=== PATIENT | male | born 1955 | race Caucasian/White ===

== ENCOUNTER 2016-08-21 18:43 | Observation (INO) | payer OTHER ==
[~2016-08-21] VITALS: Ht 172.7 cm; Wt 93.0 kg
[~2016-08-21 18:43] MED LIST: ADVAIR 250-501 EACH INH; ADVAIR DISKUS 21 DSK INH; AMITRIPTYLINE H50 M2 PO; AMITRIPTYLINE H50 MG PO; ASPIRIN CHILDRE81 MG PO; ASPIRIN EC81 M1 PO; ATORVASTATIN CA20 MG PO; ATORVASTATIN CA40 MG PO; ATORVASTATIN CA80 M1 PO; AUGMENTIN 875-1 EACH PO; COLACE100 M1 PO; ELAVIL25 MG PO; GLUCOPHAGE1000 M1 PO; GLUCOPHAGE850 MG PO; HYDROCHLOROTHIA25 M1 PO; JANUVIA 100MG100 MG PO; JANUVIA100 M1 PO; LEVSIN0.125 M1 PO; LISINOPRIL2.5 M1 PO; LOPRESSOR50 MG PO; METFORMIN1000 MG PO; METOPROLOL TART50 M1 PO; MOTRIN800 MG PO; NAPROSYN500 MG PO; NORVASC5 M1 PO; OXYCODONE HCL15 MG PO; OXYCODONE HCL20 M2 PO; OXYCODONE HYDRO10 M1 PO; OXYCODONE HYDRO15 MG PO; OXYCONTIN10 MG PO; OXYCONTIN15 MG PO; OXYCONTIN20 M1 PO; PERCOCET 5-3251 EACH PO; PREDNISONE10 M2 PO; PRILOSEC 20MG C20 MG PO; PRINIVIL 5MG5 MG PO; PROAIR HFA0.09 MG/Ac INH; PROAIR HFA8.5 GM INH; RAMIPRIL10 MG PO; ROXICODONE15 MG PO; TOPROL XL 25MG25 MG PO; VALIUM5 M1 PO
--- NOTE | 2016-08-21 18:58 | NUR ---
PT TO TRIAGE WITH C/O LEFT SIDED CHEST TIGHTNESS AND ANXIETY STARTED AROUND 3PM. PT DENIES SOB, DENIES ABD PAIN,N/V/D. VSS. HX OF CABG,HTN,DIABETES,HIGH CHOLESTEROL. EKG DONE IN [place].
--- NOTE | 2016-08-21 19:27 | ED CARDIAC/CP/PALPITATIONS ---
History of Present Illness General Chief Complaint: Palpitations Stated Complaint: HEART PALPS Source: patient, family, old records Exam Limitations: no limitations Vital Signs & Intake/Output Vital Signs & Intake/Output Vital Signs Date Time Temp Pulse Resp B/P Pulse O2 O2 Flow FiO2 Ox Delivery Rate 08/23 0926 80 118/88 08/23 0926 80 118/88 08/23 0926 60 118/88 08/23 0827 97.9 80 18 118/88 93 Room Air 08/23 0000 95 Room Air 08/22 2328 97.6 76 20 120/80 93 Room Air ED Intake and Output 08/23 0000 08/22 1200 Intake Total 1440 650 Output Total Balance 1440 650 Intake, Oral 1440 650 Patient 205 lb Weight Allergies Coded Allergies: NO KNOWN ALLERGIES (11/08/13) Reconcile Medications Albuterol Sulfate (Proair Hfa) 8.5 GM HFA.AER.AD 2 PUFF INH DAILY ASTHMA ( Reported) Amitriptyline HCl 50 MG TABLET 1 TAB PO QHS MENTAL HEALTH (Reported) Amlodipine Besylate (Norvasc) 5 MG TABLET 1 TAB PO DAILY BP (Reported) Aspirin (Ecotrin*) 81 MG TABLET.DR 1 TAB PO DAILY HEART/BLOOD (Reported) Atorvastatin Calcium 80 MG TABLET 1 TAB PO DAILY CHOLESTEROL (Reported) Fluticasone/Salmeterol (Advair 250-50 Diskus) 1 EACH BLST.W.DEV 1 PUFF INH DAILY ASTHMA (Reported) Hydrochlorothiazide 25 MG TABLET 1 TAB PO DAILY HTN (Reported) Lisinopril 2.5 MG TABLET 1 TAB PO DAILY BP (Reported) Metformin HCl (Glucophage) 1,000 MG TABLET 1 TAB PO DAILY DIABETES (Reported) Metoprolol Tartrate 50 MG TABLET 1 TAB PO DAILY BLOOD PRESSURE (Reported) Oxycodone HCl (Oxycontin) 20 MG TAB.ER.12H 1 TAB PO BID PAIN (Reported) Oxycodone HCl 20 MG TABLET 1 TAB PO Q4H PAIN (Reported) Sitagliptin Phosphate (Januvia) 100 MG TABLET 1 TAB PO DAILY DIABETES ( Reported) Triage Note: PT TO TRIAGE WITH C/O LEFT SIDED CHEST TIGHTNESS AND ANXIETY STARTED AROUND 3PM. PT DENIES SOB, DENIES ABD PAIN,N/V/D. VSS. HX OF CABG,HTN,DIABETES,HIGH CHOLESTEROL. EKG DONE IN [place]. Triage Nurses Notes Reviewed? yes Onset: Abrupt Duration: SINCE 3 PM Timing: multiple episodes today Quality/Severity: pressure Location: LEFT CHEST Activities at Onset: rest, WATCHING TV Aspirin Today: 81 mg x 2 HPI: This is a 60-year-old male history of hypertension, diabetes, dyslipidemia and previous bypass surgery 2 years ago presents to the treatment of left-sided chest pressure and palpitations that started at 3:00 while watching TV. Symptoms present since 3 PM. Denies any diaphoresis or breath. Past History Travel History Traveled to [place] past 21 day No Medical History Any Pertinent Medical History? see below for history Neurological: NONE EENT: NONE Cardiovascular: hypertension, hyperlipidemia, CABG Respiratory: NONE Gastrointestinal: SPASTIC COLON Hepatic: NONE Renal: nephrolithiasis Musculoskeletal: CHRONIC KNEE PAIN Psychiatric: NONE Endocrine: diabetes Blood Disorders: NONE Cancer(s): NONE SOCK TURNER/Reproductive: NONE History of MRSA: No History of VRE: No History of CDIFF: No Surgical History Surgical History: CABG Psychosocial History Who do you live with Family Services at Home None What is your primary language Japanese Tobacco Use: Current Daily Use Daily Tobacco Use Amount/Type: => 5 Cigarettes daily Family History Family History, If Any: FATHER (pancreatic ca). MOTHER (heart attack when she was younger than 65). Hx Contributory? No Review of Systems Review of Systems Constitutional: Denies: chills, diaphoresis, fever. EENTM: Reports: no symptoms. Respiratory: Denies: cough, short of breath, sputum production. Cardiovascular: Reports: chest pain, palpitations. GI: Denies: abdominal pain. Genitourinary: Denies: discharge, dysuria. Musculoskeletal: Reports: no symptoms. Skin: Reports: no symptoms. Neurological/Psychological: Reports: no symptoms. Hematologic/Endocrine: Denies: bruising, bleeding, polyuria, polydipsia. Immunologic/Allergic: Denies: splenectomy. All Other Systems: Reviewed and Negative Physical Exam Physical Exam General Appearance: well developed/nourished, alert, awake, comfortable Head: atraumatic, normal appearance Eyes: Bilateral: normal appearance, PERRL, EOMI. Ears, Nose, Throat: normal pharynx, hearing grossly normal Neck: normal inspection, supple, full range of motion Respiratory: normal breath sounds, chest non-tender, no respiratory distress Cardiovascular: regular rate/rhythm Peripheral Pulses: 2+ radial (R), 2+ radial (L) Gastrointestinal: normal bowel sounds, soft, non-tender Neurologic/Psych: no motor/sensory deficits, awake, alert, oriented x 3, ANXIOUS Skin: intact, normal color, warm/dry Core Measures ACS in differential dx? Yes ASA ordered for poss ACS? Yes-ordered Severe Sepsis Present: No Septic Shock Present: No Progress Differential Diagnosis: AMI, CHF/pulm edema, musculoskeletal pain, myocarditis, pericarditis, pneumonia, pneumothorax, pulmonary embolism, unstable angina Plan of Care: Orders Procedure Date/time Status Discharge Patient 08/23 UNK Active Laboratory Tests 08/23/16 0634: Anion Gap 11, Estimated GFR > 60, BUN/Creatinine Ratio 17.5 Diagnostic Imaging: Viewed by Me: Radiology Read. Discussed w/RAD: Radiology Read. CXR Impression: PATIENT: ALEKS GARCIA PRESENT AGE: 60 PATIENT ACCOUNT NO: [id number] : 55 LOCATION: [facility] ORDERING PHYSICIAN: SIRI MANZANARES MD SERVICE DATE: 08/21/16 EXAM TYPE: RAD - XRY -PORTABLE CHEST XRAY EXAMINATION: XR PORTABLE CHEST CLINICAL INFORMATION: Left- sided chest pain. COMPARISON: Chest x-ray 06/22/2016. TECHNIQUE: Portable AP view of the chest was obtained. FINDINGS: The lungs are well-expanded and clear without focal airspace consolidation. No pleural effusions or pneumothoraces are identified. Cardiomediastinal contours are within normal limits. There are median sternotomy wires and findings indicative of prior CABG. Soft tissues are unremarkable. No acute osseous abnormality is identified. IMPRESSION: No acute pulmonary process. DICTATED BY: GEE GRIFFITHS MD DATE/TIME DICTATED:08/21/162003 PIPING DESIGNER:AL[place] DATE/TIME TRANSCRIBED:08/21/162003 CONFIDENTIAL, DO NOT COPY WITHOUT APPROPRIATE AUTHORIZATION. <Electronically signed in Other Vendor System> SIGNED BY: GEE GRIFFITHS MD 08/21/162008 Initial ED EKG: NSR Departure Departure Disposition: STILL A PATIENT Condition: Stable Clinical Impression Primary Impression: Chest pain at rest Referrals: MARGARETH BURNHAM MD (PCP/Family) Departure Forms: Customer Survey General Discharge Information Observation Note Spoke With: ÁNGEL DOAN MDStephany Physician Advisor Notified: WALLY CHANG DO Place Patient In: Non-ED OBS Care Area Rationale for Observation: My rational for observation is as follows [ASPIRIN, NITRATES, SERIAL EKG, SERIAL TROPNIN, CARDIOLOGY EVALUATION, ECHOCARDIOGRAM]. Critical Care Note Critical Care Note Critical Care Time: non-applicable ED Attending Observation Initial Observation Note: I
[2016-08-21 20:07] LABS: ABSOLUTE BASOPHIL COUNT 0.1 /CUMM (0.0-0.2); ABSOLUTE EOSINOPHIL COUNT 0.4 /CUMM (0.0-0.7); ABSOLUTE GRANULOCYTE CT 4.6 /CUMM (1.4-6.5); ABSOLUTE LYMPH COUNT 2.3 /CUMM (1.2-3.4); ABSOLUTE MONOCYTE COUNT 0.8 /CUMM (0.10-0.60); BASOPHIL % 0.7 % (0.0-2.0); EOSINOPHIL % 4.6 % (0-5); GRANULOCYTE % 56.5 % (42.2-75.2); HEMATOCRIT 44.9 % (42-52); MEAN CORPUSCULAR HGB CONC 33.4 G/DL (33.0-37.0); MEAN CORPUSCULAR VOLUME 86.9 FL (80.0-94.0); MEAN PLATELET VOLUME 7.7 FL (7.4-10.4); PLATELET COUNT 227 /CUMM (130-400); RBC DISTRIBUTION WIDTH 13.5 % (11.5-14.5); RED BLOOD CELL CT 5.17 /CUMM (4.70-6.10); WHITE BLOOD CELL COUNT 8.1 /CUMM (4.8-10.8)
--- NOTE | 2016-08-21 20:09 | RADIOLOGY REPORT ---
EXAMINATION: XR PORTABLE CHEST CLINICAL INFORMATION: Left-sided chest pain. COMPARISON: Chest x-ray 06/22/2016. TECHNIQUE: Portable AP view of the chest was obtained. FINDINGS: The lungs are well-expanded and clear without focal airspace consolidation. No pleural effusions or pneumothoraces are identified. Cardiomediastinal contours are within normal limits. There are median sternotomy wires and findings indicative of prior CABG. Soft tissues are unremarkable. No acute osseous abnormality is identified. IMPRESSION: No acute pulmonary process.
--- NOTE | 2016-08-21 20:09 | NUR ---
SEEN BY ER IV MED LOCK EST 20 RIGHT AC B/W SENT PORTABLE CHEST X-RAY DONE PATIENT GIVEN 325 [place] 1150 NO CHANGE IN PRESSURE OR SYMPTOMS PATIENT REMIANS IN NSR W/O ECTOPY B/P S/P NTG 110/66
--- NOTE | 2016-08-21 20:18 | NUR ---
PER SUDHEER IN LAB, SST HEMOLYZED, NEEDS REDRAW.MIMA MST NOTIFIED.
--- NOTE | 2016-08-21 20:57 | NUR ---
PATIENT C/O CP REQUESTING PAIN MED GIVEN 4 MG MORPHINE
--- NOTE | 2016-08-21 21:16 | NUR ---
PATIENT STATES PAIN IMPROVED S/P MORPHINE NOW 10/11 MONITOR NSR W/O ECTOPY
--- NOTE | 2016-08-21 22:20 | NUR ---
PATIENT STATES PAIN RETURNING GIVEN OXYCONTIN 20 MG PO PATIENT EVAL BY HOUSE STAFF MONITOR NSR W/O ECTOPY
--- NOTE | 2016-08-21 22:28 | History & Physical ---
CARLEE CLEARY,ILSA 08/21/16 2228: General Information and HPI MD Statement: I have seen and personally examined ALEKS GARCIA and documented this H&P. The patient is a 60 year old M who presented with a patient stated chief complaint of [chest pain]. Source of Information: patient, old records Exam Limitations: no limitations History of Present Illness: This is a 60-year-old male with past medical history significant for hypertension, chronic knee pain, hyperlipidemia, diabetes, COPD, 20+ Pack year smoking, CAD status post 2 vessel bypass in 2014. He presented with chief complaint of left-sided chest pressure and palpitations that started around 3 PM this afternoon while he was watching TV. He denies any exertional component to his chest pain, denies any recent strenuous physical activity, He states he took 2 aspirin without relief of symptoms. He denies any shortness of breath, pleuritic pain, abdominal pain, nausea, vomiting, or dizziness. During interview in ED patient denies any chest pain and states that it was relieved by morphine. Of note, he has been seen in [facility] previously. On 06/25/2016 he was admitted for epiglottitis and in Feb 2016 he was seen for for chest pain. 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 iliac artery and his chest pain was ruled to be musculoskeletal origin. Patient is a current pack per day smoker for the last 20+ years, but he denies any alcohol or IV drug abuse. 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 Allergies/Medications Allergies: Coded Allergies: NO KNOWN ALLERGIES (11/08/13) Home Med list Albuterol Sulfate (Proair Hfa) 8.5 GM HFA.AER.AD 2 PUFF INH DAILY ASTHMA ( Reported) Amitriptyline HCl 50 MG TABLET 1 TAB PO QHS MENTAL HEALTH (Reported) Amlodipine Besylate (Norvasc) 5 MG TABLET 1 TAB PO DAILY BP (Reported) Aspirin (Ecotrin*) 81 MG TABLET.DR 1 TAB PO DAILY HEART/BLOOD (Reported) Atorvastatin Calcium 80 MG TABLET 1 TAB PO DAILY CHOLESTEROL (Reported) Fluticasone/Salmeterol (Advair 250-50 Diskus) 1 EACH BLST.W.DEV 1 PUFF INH DAILY ASTHMA (Reported) Hydrochlorothiazide 25 MG TABLET 1 TAB PO DAILY HTN (Reported) Lisinopril 2.5 MG TABLET 1 TAB PO DAILY BP (Reported) Metformin HCl (Glucophage) 1,000 MG TABLET 1 TAB PO DAILY DIABETES (Reported) Metoprolol Tartrate 50 MG TABLET 1 TAB PO DAILY BLOOD PRESSURE (Reported) Oxycodone HCl (Oxycontin) 20 MG TAB.ER.12H 1 TAB PO BID PAIN (Reported) Oxycodone HCl 20 MG TABLET 1 TAB PO Q4H PAIN (Reported) Sitagliptin Phosphate (Januvia) 100 MG TABLET 1 TAB PO DAILY DIABETES ( Reported) Compliance With Home Meds: UNKNOWN Past History Travel History Traveled to [place] past 21 day No Medical History Neurological: NONE EENT: NONE Cardiovascular: hypertension, hyperlipidemia, CABG Respiratory: NONE Gastrointestinal: SPASTIC COLON Hepatic: NONE Renal: nephrolithiasis Musculoskeletal: CHRONIC KNEE PAIN Psychiatric: NONE Endocrine: diabetes Blood Disorders: NONE Cancer(s): NONE BROADCASTER/Reproductive: NONE History of MRSA: No History of VRE: No History of CDIFF: No Surgical History Surgical History: CABG Past Family/Social History Family History Relations & Conditions if any FATHER (pancreatic ca). MOTHER (heart attack when she was younger than 65). Psychosocial History Who Do You Live With? spouse, child Services at Home: None Primary Language: Nepali Functional Ability ADLs Independent: dressing, eating, toileting, bathing. Ambulation: independent IADLs Independent: shopping, housework, finances, food prep, telephone, transportation , medication admin. Review of Systems Review of Systems Constitutional: Denies: chills, diaphoresis, fever, malaise, weakness. EENTM: Denies: blurred vision, eye pain. Cardiovascular: Reports: chest pain, palpitations. Denies: edema, orthopena, peripheral edema. Respiratory: Denies: cough, hemoptysis, orthopnea, short of breath, wheezing. GI: Reports: no symptoms. Genitourinary: Reports: no symptoms. Musculoskeletal: Reports: joint pain. Skin: Reports: no symptoms. Neurological/Psychological: Denies: anxiety. Exam & Diagnostic Data Last 24 Hrs of Vital Signs/I&O Vital Signs Date Time Temp Pulse Resp B/P Pulse O2 O2 Flow FiO2 Ox Delivery Rate 08/21 2116 97.6 72 18 134/70 96 Room Air 08/218 97 08/21 2004 97.8 70 18 110/62 96 Room Air 08/21 1950 97.8 74 18 120/74 96 Room Air 08/21 1852 97.9 84 18 96/61 99 Room Air Physical Exam General Appearance Alert, Oriented X3, Cooperative, No Acute Distress Skin No Rashes, No Breakdown, No Significant Lesion HEENT Atraumatic, PERRLA, EOMI, Mucous Membr. moist/pink Neck Supple Cardiovascular Regular Rate, Normal S1, Normal S2, No Murmurs, chest pain is reproducible to palpation of left chest wall. Nonpleuritic in nature. Lungs Clear to Auscultation, Normal Air Movement Abdomen Normal Bowel Sounds, Soft, No Tenderness Neurological Normal Gait, Normal Speech Extremities No Clubbing, No Cyanosis, No Edema Assessment/Plan Assessment: This is a 60-year-old male with past medical history significant for hypertension, chronic knee pain, hyperlipidemia, COPD, 37-efks-quow smoking history, diabetes, CAD status post 2 vessel bypass in 2015. He comes in with chief complaint of left-sided chest pressure and palpitations. Patient was given morphine in ED and found complete relief of his chest pain. Additionally, during examination, pain was reproducible to palpation of chest wall. ED workup showed: White count 8.1, hemoglobin 15, hematocrit 44.9, platelet 227. BEP shows sodium 138, potassium 3.9, chloride 98, bicarbonate 29, gap 11, BUN 12, creatinine 0.8. Glucose 124. Negative troponin 1, AST, ALT, alkaline phosphatase within normal limits. CXR IMPRESSION: No acute pulmonary process. Vitals: 97.6, 72, 18, 134/70, 96% on room air. PLAN: 1. Angina at rest: Pt comes in with chief complaint of chest pressure that is 7 out of 10 that did not improve with aspirin. However it did improve with morphine and was reproducible to palpation. Of note, patient had a previous admission with similar complaint, at that time etiology of chest pain was musculoskeletal. However given patient's history of CAD and bypass, patient is admitted as OBS to rule out ACS. First troponin negative. * Troponin and EKG at 3 AM and 9 AM * Echocardiogram in a.m. * Cardiology consult in a.m. * Monitor on telemetry 2. Chronic knee pain: patient has history of chronic knee pain that is treated with opiates. * Continue home regimen 3. COPD: patient has history of COPD and has significant smoking history of 20+ pack years. He is a current pack per day smoker. * Continue Symbicort * Continue albuterol 4. Hypertension/ Hyperlipidemia: Continue home regimen * Continue metoprolol 50 mg by mouth daily * Continue atorvastatin 80 mg by mouth daily * Continue HCTZ 25 mg by mouth daily 5. DM: * Accu-Chek * Sliding scale 6. Smoking: Patient is significant smoking history; see above. * Nicotine patch As Ranked By This Provider Problem List: 1. Chest pain at rest Core Measures/Miscellaneous Acute Coronary Syndrome ACS Diagnosis: No Cerebrovascular Accident CVA/TIA Diagnosis: No Congestive Heart Failure CHF Diagnosis: No Venous Thromboembolism VTE Risk Factors: Acute medical illness, Age > 40 VTE Prophylaxis Ordered Inpt: Pharm- Lovenox No Mech VTE prophylaxis d/t: No contraindications No VTE Pharm Prophylaxis d/t: No contraindications VTE Diagnosis: No VTE Type: NONE VTE Confirmed by (Test): NONE Severe Sepsis Severe Sepsis Present: No Septic Shock Septic Shock Present: No Miscellaneous Documentation Attending Case Discussed With: AGUSTINA DOAN MD Primary Care Physician: MARGARETH BURNHAM MD Patient sees these Specialists UNKNOWN Level of Patient Care: Telemetry Consults Needed: Consulting Specialty: Cardiology TI CORTES MD 08/21/16 7948: Resident Review Statement Resident Statement: examined this patient, discussed with sales management intern Other Findings: This is a 60-year-old gentleman with a past medical history significant for hypertension, hyperlipidemia, coronary artery disease status post bypass couple years ago, diabetes, current every day smoker with a 30+ pack year smoking history presents to the emergency room with a chief complaint of 8 out of 10 sharp substernal chest pain which radiates to the left axilla. Patient states that it was acute in onset and started off this afternoon while he was sitting on the couch, he thought the chest pain with past with time however did not, subsequently he came to the emergency room. Here he was given aspirin and nitroglycerin with alleviation of his symptoms. At present he is chest pain- free, denies any shortness of breath, nausea, vomiting, diarrhea, fevers, chills , recent illness or sick contacts. Physical examination is unremarkable, vital signs are stable, labs are unremarkable, first troponin is less than 0.01 EKG- heart rate 74, NM 188, QRS 110, QTC 49 Sinus rhythm, mild ST depressions in leads V3 which is old, no significant change since previous tracing Chest x-ray shows no acute pulmonary process Assessment- 1. Angina at rest 2. History of CABG 2 years ago 3. History of chronic knee pain 4. Hypertension 5. COPD 6. Hyperlipidemia 7. Diabetes mellitus 8. 30+ pack year smoking history, current nicotine use Plan- Admit to telemetry Vitals per protocol Trend troponin and EKG Cardiology consult in a.m. Echocardiogram Strict I's and O's Continue all other home meds Accu-Cheks and insulin sliding scale Given CP, no nicotine patch DVT prophylaxis with subcutaneous heparin Heart healthy diet Pain pathway Full code FRANKI CLEARY, [facility] 08/21/16 2248: Attending MD Review Statement Attending Statement Attending MD Statement: examined this patient, discuss w/resident/PA/SECURITY INSTALLATION TECHNICIAN, agreed w/resident/PA/SECURITY INSTALLATION TECHNICIAN Attending Assessment/Plan: 60 yo M active smoker with h/o T2DM, COPD, CAD s/p 2 vessel CABG (November 2014), HTN , follows up with Dr. Ugalde, last visit 1 month ago, is here with sudden onset palpitations, dyspnea and left sided chest pain that started around 3 pm while he was watching TV. He felt it was a panic attack. He took 2 baby aspirins at home. He received aspirin 325, nitro SL and IV morphine with chest discomfort now down to 4/10. He denies nausea, diaphoresis, lightheadedness or syncope. VSS. Examination unremarkable. Labs: first troponin neg. EKG: SR, TWI with ST depression lead V2-4 (old), Qtc 409. CXR: neg. Echo (2016): EF > 60%, mild LVH. 1. Chest pain in this patient with known CAD and ongoing nicotine use. 23 Tele Obs, serial EKG and troponin to rule out ACS, Echocardiogram, Cardio consult in AM. Ct. aspirin, statin and metoprolol. Check TSH and free T4. Smoking cessation counseling done. 2. Uncontrolled diabetes. Patient reports his accucheks are around 170-340 at home. Accucheks, hold januvia, initiate novolog SS, check HbA1c. 3. Chronic knee pain. ct. oxycodone and oxycontin. 4. HTN. Ct. Amlodipine, lisinopril and HCTZ. 5. Consider eventual Psych consult (inpatient vs. Outpatient) for evaluation and treatment of anxiety. DVT ppx Lovenox. Full code.
--- NOTE | 2016-08-21 22:59 | NUR ---
PT GOING TO ROOM 185-2.
--- NOTE | 2016-08-21 23:57 | NUR ---
PT SLEEPING. EASILY AROUSED TO VERBAL STIMULAATION. NSR ON THE MONITOR. NO APPARENT DISTRESS
[2016-08-22 00:28] VITALS: BP 120/70
[2016-08-22 07:51] VITALS: BP 122/84
--- NOTE | 2016-08-22 08:46 | PN- Housestaff ---
KIM ROWE 08/22/16 0846: Subjective Follow-up For: Angina at rest Tele-Events Since Last Visit: Sinus rhythm, rate 75-88. Subjective: Patient seen and examined. Reports left-sided chest pain which is worsened by movement. He also has shortness of breath at rest. Denies headache, dizziness, lightheadedness, nausea, vomiting, abdominal pain, or urinary symptoms. Vital signs remained stable. No overnight events reported. Review of Systems Constitutional: Denies: no symptoms. Objective Last 24 Hrs of Vital Signs/I&O Vital Signs Date Time Temp Pulse Resp B/P Pulse O2 O2 Flow FiO2 Ox Delivery Rate 08/22 0914 122/84 08/22 0914 122/84 08/22 0913 122/84 08/22 0904 Room Air 08/22 0800 Room Air 08/22 0751 97.7 76 18 122/84 96 Room Air 08/22 0028 97.4 82 18 120/70 94 Room Air 08/21 2353 96.6 80 20 156/78 95 Room Air 08/21 2116 97.6 72 18 134/70 96 Room Air 08/21 2058 97 08/21 2005 97.8 70 18 110/62 96 Room Air 08/21 1950 97.8 74 18 120/74 96 Room Air 08/21 1852 97.9 84 18 96/61 99 Room Air Intake & Output 08/22 1600 08/22 0800 08/22 0000 Intake Total 650 200 Output Total Balance 650 200 Intake, Oral 650 200 Patient 205 lb 205 lb Weight Physical Exam General Appearance: Alert, Oriented X3, Cooperative, No Acute Distress Skin: No Rashes, No Breakdown, No Significant Lesion HEENT: Atraumatic, PERRLA, EOMI, Mucous Membr. moist/pink Neck: Supple, No JVD, No thryomegaly, +2 Carotid Pulse wo Bruit, No LAD Lymphatic: Axillary nl, Cervical nl Cardiovascular: Regular Rate, Normal S1, Normal S2, No Murmurs, Reproducible pain to palpation of left chest wall Lungs: Clear to Auscultation, Normal Air Movement Abdomen: Normal Bowel Sounds, Soft, No Tenderness, No Hepatospenomegaly, No Masses Neurological: Normal Gait, Normal Speech Extremities: No Clubbing, No Cyanosis, No Edema Vascular: Pulses Symmetrical Current Medications: Current Medications Sig/Ronna Start time Last Medication Dose Route Stop Time Status Admin Acetaminophen 650 MG Q6P PRN 08/21 2300 AC PO Albuterol Sulfate 2 PUF DAILY 08/22 1000 AC 08/22 INH 0918 Amitriptyline HCl 50 MG AT BEDTIME 08/22 2200 AC PO Amlodipine Besylate 5 MG DAILY 08/22 1000 AC 08/22 PO 0913 Aspirin 0 .STK-MED ONE 08/21 2001 DC PO Aspirin 325 MG ONCE ONE 08/21 194 DC 08/21 PO 08/21 1942007 Aspirin Buffered 81 MG DAILY 08/22 1000 AC 08/22 PO 0913 Atorvastatin Calcium 80 MG 1700 08/22 1700 AC PO Budesonide/ 2 PUF BID 08/22 1000 AC 08/22 Formoterol Fumarate INH 0914 Heparin Sodium 5,000 UNIT Q8 08/22 0600 AC 08/22 (Porcine) SC 0601 Hydrochlorothiazide 25 MG DAILY 08/22 1000 AC 08/22 PO 0913 Insulin Aspart 0 TIDAC 08/22 0800 AC 08/22 SC 0826 Lisinopril 2.5 MG DAILY 08/22 1000 AC 08/22 PO 0914 Metoprolol Succinate 50 MG DAILY 08/22 1000 AC 08/22 PO 0914 Morphine Sulfate 4 MG ONCE ONE 08/21 2100 DC 08/21 IV 08/21 2101 2101 Morphine Sulfate 0 .STK-MED ONE 08/21 2054 DC .ROUTE Nitroglycerin 0.4 MG ONCE ONE 08/21 1944 DC 08/21 SL 08/21 Oxycodone HCl 20 MG BID 08/22 1000 AC 08/22 PO 0912 Oxycodone HCl 20 MG Q4P PRN 08/21 2300 AC 08/22 PO 0916 Oxycodone HCl 0 .STK-MED ONE 08/217 DC PO Oxycodone HCl 20 MG ONCE ONE 08/21 2215 DC 08/21 PO 08/21 2216 2219 Last 24 Hrs of Lab/Nuno Results Last 24 Hrs of Labs/Mics: Laboratory Tests 08/22/16 1045: D-Dimer 245 H 08/22/16 0630: Troponin I < 0.01 08/22/16 0302: Troponin I 0.01 08/21/16 2100: Anion Gap 11, Estimated GFR > 60, BUN/Creatinine Ratio 15.0, Glucose 124 H, Calcium 9.5, Total Bilirubin 0.7, AST 17, ALT 38, Alkaline Phosphatase 63, Troponin I < 0.01, Total Protein 6.7, Albumin 4.0, Globulin 2.7, Albumin/ Globulin Ratio 1.5 08/21/16 2000: CBC w Diff NO MAN DIFF REQ, RBC 5.17, MCV 86.9, MCH 29.0, RDW 13.5, MPV 7.7, Gran % 56.5, Lymphocytes % 28.4, Monocytes % 9.8 H, Eosinophils % 4.6, Basophils % 0.7, Absolute Granulocytes 4.6, Absolute Lymphocytes 2.3, Absolute Monocytes 0.8 H, Absolute Eosinophils 0.4, Absolute Basophils 0.1, PUBS MCHC 33.4 Assessment/Plan Assessment: This is a 60-year-old male with past medical history significant for hypertension, chronic knee pain, hyperlipidemia, COPD, [id number] smoking history, diabetes, CAD status post 2 vessel bypass in 2014. He comes in with chief complaint of left-sided chest pressure and palpitations. Patient was given morphine in ED and found complete relief of his chest pain. Problem list * Angina at rest * Chest wall pain * History of CABG 2 years ago * History of chronic knee pain * Hypertension * COPD * Hyperlipidemia * Diabetes Plan * Continue cardiac monitor * Troponins and EKGs remained negative so far * We'll check d-dimer, if elevated patient may need CTA to rule out PE. * If negative patient may need nuclear stress test in the future. * Continue patient's chronic pain medications including Roxycodone and OxyContin. * Follow echocardiogram * Appreciate cardiology recommendations * Continue with Accu-Cheks and insulin sliding scale * DVT prophylaxis with subcutaneous heparin * Cardiac diet * No nicotine patch given chest pain * Patient is full code Problem List: 1. Chest pain Pain Ratin Pain Location: Chest wall, chronic knee pain Pain Goal: Remain pain free Pain Plan: Medications of oxycodone and OxyContin Tomorrow's Labs & Rationales: BEP to monitor electrolytes Consulting Request: Consulting Specialty: Cardiology CECILY CLEARY,QI 08/22/16 0943: Attending MD Review Statement Attending Statement Attending MD Statement: examined this patient, discuss w/resident/PA/GRAPE GROWER, agreed w/resident/PA/GRAPE GROWER, discussed with family, reviewed EMR data (avail), discussed with nursing, amended to note Attending Assessment/Plan: Patient seen and examined. Lying in bed. He continues complain of left-sided chest pain. Pain is laterally located. He reports that it is exacerbated by movement and is reproducible. He also complains of shortness of breath at rest. Denies similar pain in the past. This [place] enzymes have been negative with no ischemic changes on EKG. He has had no events of on telemetry. On examination he does not appear to be in respiratory distress. Lungs are clear to auscultation bilaterally. Heart sounds are regular with no audible normal. Abdomen is soft and nontender. He has no pedal edema. He has no jugular venous distention. Recommendations: -Check d-dimer. If elevated obtain CT angiogram to rule out pulmonary embolism. -If above is negative he will need a nuclear stress test to determine if his pain is cardiac related. -He reports that his pain was not relieved with nitroglycerin. Continue Roxicodone and OxyContin which he takes for chronic pain syndrome.
--- NOTE | 2016-08-22 08:51 | PN- Housestaff ---
Assessment/Plan Consulting Request: Consulting Specialty: Cardiology
--- NOTE | 2016-08-22 13:13 | NUR ---
PATIENT REPORTS DIAPHORESIS, FEELING OF EXTREME ANXIETY, HEADACHE 4/10; VSS ON RA; FINGERSTICK 278; PATIENT IS EVERYDAY SMOKER; NO HISTORY OF ANXIETY; DR. JUAREZ TORO AWARE; WILL MONITOR
--- NOTE | 2016-08-22 15:44 | Cons- Cardiology ---
General Information and HPI Consulting Request Date of Consult: 08/22/16 Requested By: FRANKI CLEARY,AGUSTINA Reason for Consult: Chest pain in a patient with known coronary artery disease Source of Information: patient, old records Exam Limitations: no limitations History of Present Illness: The patient is 60-year-old man with a history of coronary artery disease with bypass surgery in 2014. He also has hypertension and dyslipidemia under appropriate medications. He is an active smoker despite his underlying disease. Patient states he began having left mid axillary chest pain radiating to the left chest yesterday. This was worse with motion and was reproducible with palpation. Because of his past history he was admitted for this. So far the workup has shown 3 negative EKGs and 3 negative cardiac enzymes. The patient has been ambulatory with no exacerbation of his pain. The patient states that he has not had a stress test recently. Allergies/Medications Allergies: Coded Allergies: NO KNOWN ALLERGIES (11/08/13) Home Med List: Albuterol Sulfate (Proair Hfa) 8.5 GM HFA.AER.AD 2 PUFF INH DAILY ASTHMA ( Reported) Amitriptyline HCl 50 MG TABLET 1 TAB PO QHS MENTAL HEALTH (Reported) Amlodipine Besylate (Norvasc) 5 MG TABLET 1 TAB PO DAILY BP (Reported) Aspirin (Ecotrin*) 81 MG TABLET.DR 1 TAB PO DAILY HEART/BLOOD (Reported) Atorvastatin Calcium 80 MG TABLET 1 TAB PO DAILY CHOLESTEROL (Reported) Fluticasone/Salmeterol (Advair 250-50 Diskus) 1 EACH BLST.W.DEV 1 PUFF INH DAILY ASTHMA (Reported) Hydrochlorothiazide 25 MG TABLET 1 TAB PO DAILY HTN (Reported) Lisinopril 2.5 MG TABLET 1 TAB PO DAILY BP (Reported) Metformin HCl (Glucophage) 1,000 MG TABLET 1 TAB PO DAILY DIABETES (Reported) Metoprolol Tartrate 50 MG TABLET 1 TAB PO DAILY BLOOD PRESSURE (Reported) Oxycodone HCl (Oxycontin) 20 MG TAB.ER.12H 1 TAB PO BID PAIN (Reported) Oxycodone HCl 20 MG TABLET 1 TAB PO Q4H PAIN (Reported) Sitagliptin Phosphate (Januvia) 100 MG TABLET 1 TAB PO DAILY DIABETES ( Reported) Current Medications: Current Medications Sig/Ronna Start time Last Medication Dose Route Stop Time Status Admin Acetaminophen 650 MG Q6P PRN 08/21 2300 AC PO Albuterol Sulfate 2 PUF DAILY 08/22 1000 AC 08/22 INH 0918 Amitriptyline HCl 50 MG AT BEDTIME 08/22 2200 AC PO Amlodipine Besylate 5 MG DAILY 08/22 1000 AC 08/22 PO 0913 Aspirin 0 .STK-MED ONE 08/21 2001 DC PO Aspirin 325 MG ONCE ONE 08/21 1945 DC 08/21 PO 08/21 1942007 Aspirin Buffered 81 MG DAILY 08/22 1000 AC 08/22 PO 0913 Atorvastatin Calcium 80 MG 1700 08/22 1700 AC PO Budesonide/ 2 PUF BID 08/22 1000 AC 08/22 Formoterol Fumarate INH 0914 Heparin Sodium 5,000 UNIT Q8 08/22 0600 AC 08/22 (Porcine) SC 1336 Hydrochlorothiazide 25 MG DAILY 08/22 1000 AC 08/22 PO 0913 Insulin Aspart 0 TIDAC 08/22 0800 AC 08/22 SC 1155 Lisinopril 2.5 MG DAILY 08/22 1000 AC 08/22 PO 0914 Metoprolol Succinate 50 MG DAILY 08/22 1000 AC 08/22 PO 0914 Morphine Sulfate 4 MG ONCE ONE 08/21 2100 DC 08/21 IV 08/21 2101 2101 Morphine Sulfate 0 .STK-MED ONE 08/21 2054 DC .ROUTE Nicotine 21 MG DAILY 08/22 1341 AC 08/22 TOP 1428 Nitroglycerin 0.4 MG ONCE ONE 08/21 1945 DC 08/21 SL 08/21 Oxycodone HCl 20 MG BID 08/22 1000 AC 08/22 PO 0912 Oxycodone HCl 20 MG Q4P PRN 08/21 2300 AC 08/22 PO 1332 Oxycodone HCl 0 .STK-MED ONE 08/21 2217 DC PO Oxycodone HCl 20 MG ONCE ONE 08/21 2215 DC 08/21 PO 08/21 2216 2219 Review of Systems Review of Systems: He has chronic musculoskeletal pain and is on chronic opioids. Past History Travel History Traveled to [place] past 21 day No Medical History Blood Transfusion Hx: No Neurological: NONE EENT: NONE Cardiovascular: hypertension, hyperlipidemia, CABG Respiratory: NONE Gastrointestinal: SPASTIC COLON Hepatic: NONE Renal: nephrolithiasis Musculoskeletal: CHRONIC KNEE PAIN Psychiatric: NONE Endocrine: diabetes Blood Disorders: NONE Cancer(s): NONE HEALTHCARE CUSTOMER SERVICE/Reproductive: NONE Surgical History Surgical History: CABG Family History Relations & Conditions If Any: FATHER (pancreatic ca). MOTHER (heart attack when she was younger than 65). Psychosocial History Who Do You Live With? spouse, child Services at Home: None Primary Language: Zimbabwean Smoking Status: Current Everyday Smoker Functional Ability ADLs Independent: dressing, eating, toileting, bathing. Ambulation: independent IADLs Independent: shopping, housework, finances, food prep, telephone, transportation , medication admin. Exam & Diagnostic Data Vital Signs and I&O Vital Signs Date Time Temp Pulse Resp B/P Pulse O2 O2 Flow FiO2 Ox Delivery Rate 08/22 0914 122/84 08/22 0914 122/84 08/22 0913 122/84 08/22 0904 Room Air 08/22 0800 Room Air 08/22 0751 97.7 76 18 122/84 96 Room Air 08/22 0028 97.4 82 18 120/70 94 Room Air 08/21 2353 96.6 80 20 156/78 95 Room Air 08/21 2116 97.6 72 18 134/70 96 Room Air 08/21 2058 97 08/21 2005 97.8 70 18 110/62 96 Room Air 08/21 1950 97.8 74 18 120/74 96 Room Air 08/21 1852 97.9 84 18 96/61 99 Room Air Intake & Output 08/22 1600 08/22 0800 08/22 0000 08/21 1600 08/21 0800 08/21 0000 Intake Total 720 650 200 Output Total Balance 720 650 200 Intake, Oral 720 650 200 Patient 205 lb 205 lb Weight Physical Exam: He is a middle-aged man in no acute distress. HEENT exam is normal Chest is clear Heart reveals regular rhythm and no murmurs Abdomen is benign Extremities no edema Labs/Nuno Results: Laboratory Tests 08/22 08/22 08/22 08/21 1045 0630 0302 2100 Chemistry Sodium (137 - 145 mmol/L) 138 Potassium (3.5 - 5.1 mmol/L) 3.9 Chloride (98 - 107 mmol/L) 98 Carbon Dioxide (22 - 30 mmol/L) 29 Anion Gap (5 - 16) 11 BUN (9 - 20 mg/dL) 12 Creatinine (0.7 - 1.2 mg/dL) 0.8 Estimated GFR (>60 ml/min) > 60 BUN/Creatinine Ratio (7 - 25 %) 15.0 Glucose (65 - 99 mg/dL) 124 H Calcium (8.4 - 10.2 mg/dL) 9.5 Total Bilirubin (0.2 - 1.3 mg/dL) 0.7 AST (17 - 59 U/L) 17 ALT (21 - 72 U/L) 38 Alkaline Phosphatase (< 127 U/L) 63 Troponin I (<0.11 ng/ml) < 0.01 0.01 < 0.01 Total Protein (6.3 - 8.2 g/dL) 6.7 Albumin (3.5 - 5.0 g/dL) 4.0 Globulin (1.9 - 4.2 gm/dL) 2.7 Albumin/Globulin Ratio (1.1 - 2.2 %) 1.5 Coagulation D-Dimer (70 - 232 ng/ml) 245 H 08/21 1999 Hematology CBC w Diff NO MAN DIFF REQ WBC (4.8 - 10.8 /CUMM) 8.1 RBC (4.70 - 6.10 /CUMM) 5.17 Hgb (14.0 - 18.0 G/DL) 15.0 Hct (42 - 52 %) 44.9 MCV (80.0 - 94.0 FL) 86.9 MCH (27.0 - 31.0 PG) 29.0 RDW (11.5 - 14.5 %) 13.5 Plt Count (130 - 400 /CUMM) 227 MPV (7.4 - 10.4 FL) 7.7 Gran % (42.2 - 75.2 %) 56.5 Lymphocytes % (20.5 - 51.1 %) 28.4 Monocytes % (1.7 - 9.3 %) 9.8 H Eosinophils % (0 - 5 %) 4.6 Basophils % (0.0 - 2.0 %) 0.7 Absolute Granulocytes (1.4 - 6.5 /CUMM) 4.6 Absolute Lymphocytes (1.2 - 3.4 /CUMM) 2.3 Absolute Monocytes (0.10 - 0.60 /CUMM) 0.8 H Absolute Eosinophils (0.0 - 0.7 /CUMM) 0.4 Absolute Basophils (0.0 - 0.2 /CUMM) 0.1 PUBS MCHC (33.0 - 37.0 G/DL) 33.4 Diagnostic Data EKG Results 3 EKGs have been done. All show sinus rhythm with no acute changes. There are some minor nonspecific anterior T-wave abnormalities which are not new. CXR Results PATIENT: ALEKS GARCIA PRESENT AGE: 60 PATIENT ACCOUNT NO: [id number] : 55 LOCATION: [facility] ORDERING PHYSICIAN: SIRI MANZANARES MD SERVICE DATE: 08/21/16 EXAM TYPE: RAD - XRY-PORTABLE CHEST XRAY EXAMINATION: XR PORTABLE CHEST CLINICAL INFORMATION: Left-sided chest pain. COMPARISON: Chest x-ray 06/22/2016. TECHNIQUE: Portable AP view of the chest was obtained. FINDINGS: The lungs are well-expanded and clear without focal airspace consolidation. No pleural effusions or pneumothoraces are identified. Cardiomediastinal contours are within normal limits. There are median sternotomy wires and findings indicative of prior CABG. Soft tissues are unremarkable. No acute osseous abnormality is identified. IMPRESSION: No acute pulmonary process. DICTATED BY: GEE GRIFFITHS MD DATE/TIME DICTATED:08/21/162003 REGISTRAR NURSES' REGISTRY:[place] Assessment/Plan Assessment/Plan The patient is a 60-year-old man with known coronary artery disease who presents with very atypical chest pain which is really midaxillary. This is worse on motion and worse on palpation. He has no exertional component and no midsternal component. He has been ambulatory around the rojas. His EKGs and enzymes are negative. I think the patient can be discharged home. He can follow-up with Dr. Ugalde who will decide about outpatient stress testing, but I don't think this needs to be done in hospital. He should continue all his regular medications and make a regular effort to stop smoking. Copies To: ELODIA CLEARY,ERNESTO Diamond Consult Acknowledgment - Thank you for your consult request.
[2016-08-22 15:47] VITALS: BP 119/66
--- NOTE | 2016-08-22 17:37 | NUR ---
PT REPORTING MID-AXILLARY TO LEFT LATERAL CHEST DISCOMFORT. 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 ORDERED 0.5 MG PO ATIVAN. PREVIOUS CARDIAC ENZYMES NEGATIVE. PER PT, CHEST DISCOMFORT IS NOT NEW.
[2016-08-22 23:28] VITALS: BP 120/80
--- NOTE | 2016-08-23 07:40 | PN- Housestaff ---
See Addendum Subjective Follow-up For: Chest pain Tele-Events Since Last Visit: NSR, HR 73-84, PVCs with no overnight events. Subjective: Patient seen and examined at bedside this AM. He reports he feels well other than his chronic bilateral knee pain which is tolerable. Patient denies chest pain, palpitations or generally feeling unwell. He is amenable to discharge today. Review of Systems Constitutional: Denies: chills, fever, malaise. EENTM: Denies: blurred vision, hearing changes, nasal congestion. Cardiovascular: Denies: chest pain, palpitations, peripheral edema, syncope. Respiratory: Denies: cough, short of breath. Gastrointestinal: Denies: abdominal pain, nausea, vomiting. Genitourinary: Denies: dysuria, hematuria. Musculoskeletal: Reports: joint pain (Bilateral knee pain, chronic). Denies: back pain. Skin: Denies: rash. Neurological/Psychological: Denies: anxiety, confusion, headache. Hematologic/Endocrine: Denies: bruising, bleeding. Immunologic/Allergic: Denies: splenectomy. Objective Last 24 Hrs of Vital Signs/I&O Vital Signs Date Time Temp Pulse Resp B/P Pulse O2 O2 Flow FiO2 Ox Delivery Rate 08/23 0000 95 Room Air 08/22 2328 97.6 76 20 120/80 93 Room Air 08/22 1547 97.2 83 18 119/66 94 Room Air 08/22 0914 122/84 08/22 0914 122/84 08/22 0913 122/84 08/22 0904 Room Air Intake & Output 08/23 1600 08/23 0800 08/23 0000 Intake Total 200 720 Output Total 500 Balance -300 720 Intake, Oral 200 720 Output, Urine 500 Physical Exam General Appearance: Alert, Oriented X3, Cooperative, No Acute Distress Skin: No Rashes, No Significant Lesion HEENT: Atraumatic, PERRLA, EOMI, Mucous Membr. moist/pink Neck: Supple, +2 Carotid Pulse wo Bruit Lymphatic: Cervical nl Cardiovascular: Regular Rate, Normal S1, Normal S2, No Murmurs, No chest pain on palpation of anterior chest wall. Lungs: Clear to Auscultation, Normal Air Movement Abdomen: Normal Bowel Sounds, Soft, No Tenderness, No Masses Neurological: Normal Speech, Strength at 5/5 X4 Ext, Normal Tone Extremities: No Clubbing, No Cyanosis, No Edema Vascular: Pulses Symmetrical Current Medications: Current Medications Sig/Ronna Start time Last Medication Dose Route Stop Time Status Admin Acetaminophen 650 MG Q6P PRN 08/21 2300 AC PO Albuterol Sulfate 2 PUF DAILY 08/22 1000 AC 08/22 INH 0918 Amitriptyline HCl 50 MG AT BEDTIME 08/22 2200 AC 08/22 PO 2107 Amlodipine Besylate 5 MG DAILY 08/22 1000 AC 08/22 PO 0913 Aspirin Buffered 81 MG DAILY 08/22 1000 AC 08/22 PO 0913 Atorvastatin Calcium 80 MG 1700 08/22 1700 AC 08/22 PO 1703 Budesonide/ 2 PUF BID 08/22 1000 AC 08/22 Formoterol Fumarate INH 2108 Diclofenac Sodium 1 MAGALY 4 TIMES/DAY 08/23 0033 AC 08/23 TOP 0107 Heparin Sodium 5,000 UNIT Q8 08/22 0600 AC 08/23 (Porcine) SC 0629 Hydrochlorothiazide 25 MG DAILY 08/22 1000 AC 08/22 PO 0913 Insulin Aspart 0 TIDAC 08/22 0800 AC 08/22 SC 1704 Lisinopril 2.5 MG DAILY 08/22 1000 AC 08/22 PO 0914 Lorazepam 0.5 MG ONE ONE 08/22 1745 DC 08/22 PO 08/22 1746 1745 Melatonin 5 MG AT BEDTIME 08/22 2200 AC 08/22 PO 2220 Metoprolol Succinate 50 MG DAILY 08/22 1000 AC 08/22 PO 0914 Nicotine 21 MG DAILY 08/22 1341 AC 08/22 TOP 1428 Oxycodone HCl 20 MG BID 08/22 1000 AC 08/22 PO 2107 Oxycodone HCl 20 MG Q4P PRN 08/21 2300 AC 08/23 PO 0630 Sodium Chloride 2 SPRAY Q4P PRN 08/22 1700 AC 08/22 JORDIN 2108 Last 24 Hrs of Lab/Nuno Results Last 24 Hrs of Labs/Mics: Laboratory Tests 08/23/16 0634: Anion Gap 11, Estimated GFR > 60, BUN/Creatinine Ratio 17.5 08/22/16 1045: D-Dimer 245 H Orders Radiology Findings: CXR: IMPRESSION: No acute pulmonary process. Assessment/Plan Assessment: Mr. Pate is a 60-year-old male with past medical history significant for hypertension, chronic knee pain, hyperlipidemia, COPD, 20-pack- year smoking history, diabetes and CAD status post 2 vessel bypass in 2014. He presented to the [place] ED on with chief complaint of left-sided chest pressure and palpitations. In the ED: Vital signs showed T 97.9, HR 84, RR 18 and BP 120/74. Labs showed WBC 8.1, Hgb 15, Hct 44.9, Plt 227. BEP showed Na 138, K 3.9, Cl 98, bicarbonate 29, AG 11, BUN 12, creatinine 0.8. Glucose 124. Negative troponin CXR was done and showed no acute pulmonary process. Patient was given morphine in ED and found complete relief of his chest pain. He was admitted to the telemetry floor for observation and the following is the current problem list and management: Problem list * Angina at rest * Chest wall pain * History of CABG 2 years ago * History of chronic knee pain * Hypertension * COPD * Hyperlipidemia * Diabetes Plan * Continue playground monitor, stable for discharge today. * Troponins and EKGs negative x 3, ACS ruled out * D-Dimer only slightly elevated to 245, no urgent need for CTA to rule out PE as patient saturating well on room air, no evidence of dyspnea, no tachycardia. * Echocardiogram and possible stress test to be done as an outpatient. * Appreciate cardiology recommendations, suggest patient can be DC home today. * Follow up with Dr. Ugalde after discharge. * Continue patient's chronic pain medications including Roxycodone and OxyContin. * Continue with Accu-Cheks and insulin sliding scale, will resume home anti- diabetic regimen on DC. * DVT prophylaxis with subcutaneous heparin * Heart healthy diet * No nicotine patch given 2/2 chest pain, highly encouraged patient to discontinue tobacco usage. * Patient is full code. Problem List: 1. DVT prophylaxis 2. Full code status 3. Chronic knee pain 4. Chest pain 5. Hypertension Pain Ratin Pain Location: Bilateral knees, chronic Pain Goal: Pain 4 or less Pain Plan: Tylenol for mild pain, oxycodone for moderate pain (home medication). Tomorrow's Labs & Rationales: None, discharge today. Consulting Request: Consulting Specialty: Cardiology
--- NOTE | 2016-08-23 07:46 | Patient Discharge Instructions ---
Discharge Instructions General Discharge Information You were seen/treated for: Chest pain Special Instructions: Please follow up with your PCP within 7 days of discharge for continued care. Discuss about possible referral to psychiatrist for management of anxiety. Please follow up with your substance abuse nurse within 7 days of discharge for continued care. Discuss need for echocardiogram and possible stress test as an outpatient. Please take all medications as directed. Please consider quitting smoking. Please return if your symptoms return or worsen. Diet Recommended Diet: Heart Healthy Activity Activity Self Limited: Yes Acute Coronary Syndrome Inclusion Criteria At DC or during hospital stay patient has or had the following: ACS DIAGNOSIS No Discharge Core Measures Meds if any: Prescribed or Continued at Discharge Meds if any: NOT Prescribed or Continued at Discharge Congestive Heart Failure Inclusion Criteria At DC or during hospital stay patient has or had the following: CHF DIAGNOSIS No Discharge Core Measures Meds if any: Prescribed or Continued at Discharge Meds if any: NOT Prescribed or Continued at Discharge Cerebrovascular accident Inclusion Criteria At DC or during hospital stay patient has or had the following: CVA/TIA Diagnosis No Discharge Core Measures Meds if any: Prescribed or Continued at Discharge Meds if any: NOT Prescribed or Continued at Discharge Venous thromboembolism Inclusion Criteria VTE Diagnosis No VTE Type NONE VTE Confirmed by (Test) NONE Discharge Core Measures - Per Current guidelines, there needs to be overlap - treatment for the first 5 days of Warfarin therapy. - If discharged on Warfarin prior to 5 days of - overlap therapy, the patient will need to be - assessed for post discharge needs including - *Post discharge parental anticoagulation - *Warfarin and/or parental anticoagulation education - *Follow up date to check INR post discharge At least 5 days overlap therapy as Inpatient No Meds if any: Prescribed or Continued at Discharge Note: Overlap Therapy is Warfarin and Anticoagulant Meds if any: NOT Prescribed or Continued at Discharge
[2016-08-23 08:27] VITALS: BP 118/88; BP 122/80
[2016-08-23 09:26] VITALS: BP 118/88
--- NOTE | 2016-08-23 10:45 | PN- Cardiology ---
Subjective Subjective: The patient reports that he is feeling well. Chest discomfort has resolved. No shortness of breath. No palpitations. No diaphoresis. No lightheadedness or dizziness. No nausea or vomiting. Objective Vital Signs and I&Os Vital Signs Date Time Temp Pulse Resp B/P Pulse O2 O2 Flow FiO2 Ox Delivery Rate 08/23 09 80 118/88 08/23 0926 80 118/88 08/23 0926 60 118/88 08/23 0827 97.9 80 18 118/88 93 Room Air 08/23 0000 95 Room Air 08/22 2328 97.6 76 20 120/80 93 Room Air 08/22 1547 97.2 83 18 119/66 94 Room Air Intake & Output 08/23 1600 08/23 0800 08/23 0000 08/22 1600 08/22 0808/22 0000 Intake Total 200 720 720 650 200 Output Total 500 Balance -300 720 720 650 200 Intake, Oral 200 720 720 650 200 Output, Urine 500 Patient 205 lb 205 lb Weight Physical Exam: Gen: NAD HEENT: normal Lungs: clear to auscultation, normal resp. effort Heart: RRR, S1, S2, no murmurs Abdomen: Soft, nontender, no masses Extremities: No clubbing, cyanosis, or edema. Neuro: Alert and oriented x 3, cranial nerves intact Current Medications: Current Medications Sig/Ronna Start time Last Medication Dose Route Stop Time Status Admin Acetaminophen 650 MG Q6P PRN 08/21 2300 AC PO Albuterol Sulfate 2 PUF DAILY 08/22 1000 AC 08/23 INH 0928 Amitriptyline HCl 50 MG AT BEDTIME 08/22 2200 AC 08/22 PO 2107 Amlodipine Besylate 5 MG DAILY 08/22 1000 AC 08/23 PO 0926 Aspirin Buffered 81 MG DAILY 08/22 1000 AC 08/23 PO 0925 Atorvastatin Calcium 80 MG 1700 08/22 1700 AC 08/22 PO 1703 Budesonide/ 2 PUF BID 08/22 1000 AC 08/23 Formoterol Fumarate INH 0925 Diclofenac Sodium 1 MAGALY 4 TIMES/DAY 08/23 0033 AC 08/23 TOP 0107 Heparin Sodium 5,000 UNIT Q8 08/22 0600 AC 08/23 (Porcine) SC 0629 Hydrochlorothiazide 25 MG DAILY 08/22 1000 AC 08/23 PO 0925 Insulin Aspart 0 TIDAC 08/22 0800 AC 08/22 SC 1704 Lisinopril 2.5 MG DAILY 08/22 1000 AC 08/23 PO 0926 Lorazepam 0.5 MG ONE ONE 08/22 1745 DC 08/22 PO 08/22 1746 1745 Melatonin 5 MG AT BEDTIME 08/22 2200 AC 08/22 PO 2220 Metoprolol Succinate 50 MG DAILY 08/22 1000 AC 08/23 PO 0926 Nicotine 21 MG DAILY 08/22 1341 AC 08/23 TOP 0925 Oxycodone HCl 20 MG BID 08/22 1000 AC 08/23 PO 0926 Oxycodone HCl 20 MG Q4P PRN 08/21 2300 AC 08/23 PO 0630 Sodium Chloride 2 SPRAY Q4P PRN 08/22 1700 AC 08/22 JORDIN 2108 Results Last 48 Hrs of Labs/Mics: Laboratory Tests 08/23/16 0634: Anion Gap 11, Estimated GFR > 60, BUN/Creatinine Ratio 17.5 08/22/16 1045: D-Dimer 245 H 08/22/16 0630: Troponin I < 0.01 08/22/16 0302: Troponin I 0.01 08/21/16 2100: Anion Gap 11, Estimated GFR > 60, BUN/Creatinine Ratio 15.0, Glucose 124 H, Calcium 9.5, Total Bilirubin 0.7, AST 17, ALT 38, Alkaline Phosphatase 63, Troponin I < 0.01, Total Protein 6.7, Albumin 4.0, Globulin 2.7, Albumin/ Globulin Ratio 1.5 08/21/16 2000: CBC w Diff NO MAN DIFF REQ, RBC 5.17, MCV 86.9, MCH 29.0, RDW 13.5, MPV 7.7, Gran % 56.5, Lymphocytes % 28.4, Monocytes % 9.8 H, Eosinophils % 4.6, Basophils % 0.7, Absolute Granulocytes 4.6, Absolute Lymphocytes 2.3, Absolute Monocytes 0.8 H, Absolute Eosinophils 0.4, Absolute Basophils 0.1, PUBS MCHC 33.4 Recent Imaging Studies: Chest x-ray: No acute pulmonary process. Assessment/Plan Assessment/Plan 1. CAD, status post CABG 2. Hypertension, controlled 3. Diabetes mellitus 4. Chest discomfort, mostly atypical. Ruled out for myocardial infarction. Recommendations: * Discharge to home. * Regadenoson nuclear stress test as outpatient. * Call or return to emergency department with further chest pain. * Continue usual outpatient medications. * Follow up in the office in one week. Continue telemetry? Yes
== END 2016-08-23 11:00 ==
LOC: ENRESERVDT → ENRESERVTM → ERH 18:43 → ENPENDDIS 22:31 → ERHI 22:31 → 1NO 22:31
PROVIDERS: Emergency Medicine; ADMIT Student in an Organized Health Care Education/Training Program
DX: R07.89 Other chest pain (principal); I25.810 Atherosclerosis of coronary artery bypass graft(s) without angina pectoris; I10 Essential (primary) hypertension; J44.9 Chronic obstructive pulmonary disease, unspecified; E78.5 Hyperlipidemia, unspecified; E11.9 Type 2 diabetes mellitus without complications; F17.200 Nicotine dependence, unspecified, uncomplicated; M25.562 Pain in left knee; M25.561 Pain in right knee
CPT/HCPCS: 2000; 36415; 82436; 93005; 93010; 96372; 96374; G0378; J1644; J3490

== ENCOUNTER 2016-09-26 09:07 | Emergency (ER) | payer OTHER ==
[~2016-09-26] VITALS: Ht 172.7 cm; Wt 90.7 kg
[2016-09-26 09:33] LABS: ABSOLUTE BASOPHIL COUNT 0 /CUMM (0.0-0.2); ABSOLUTE EOSINOPHIL COUNT 0 /CUMM (0.0-0.7); ABSOLUTE GRANULOCYTE CT 10.7 /CUMM (1.4-6.5); ABSOLUTE LYMPH COUNT 1.2 /CUMM (1.2-3.4); ABSOLUTE MONOCYTE COUNT 0.6 /CUMM (0.10-0.60); BASOPHIL % 0.4 % (0.0-2.0); EOSINOPHIL % 0.3 % (0-5); HEMATOCRIT 47.8 % (42-52); MEAN CORPUSCULAR HGB 29.1 PG (27.0-31.0); MEAN CORPUSCULAR HGB CONC 33.2 G/DL (33.0-37.0); MEAN CORPUSCULAR VOLUME 87.5 FL (80.0-94.0); MEAN PLATELET VOLUME 7.9 FL (7.4-10.4); PLATELET COUNT 237 /CUMM (130-400); RBC DISTRIBUTION WIDTH 13.2 % (11.5-14.5); RED BLOOD CELL CT 5.47 /CUMM (4.70-6.10); WHITE BLOOD CELL COUNT 12.6 /CUMM (4.8-10.8)
--- NOTE | 2016-09-26 09:33 | ED GI/GU/ABDOMINAL COMPLAINT ---
History of Present Illness General Chief Complaint: Abdominal Pain/Flank Pain Stated Complaint: BACK PAIN RADIATING TO ABD Source: patient, old records Exam Limitations: no limitations Vital Signs & Intake/Output Vital Signs & Intake/Output Vital Signs Date Time Temp Pulse Resp B/P Pulse O2 O2 Flow FiO2 Ox Delivery Rate 09/26 1150 98.6 76 18 126/84 98 Room Air 09/26 0910 97.1 103 16 129/80 97 Room Air Allergies Coded Allergies: NO KNOWN ALLERGIES (11/08/13) Reconcile Medications Albuterol Sulfate (Proair Hfa) 8.5 GM HFA.AER.AD 2 PUFF INH DAILY ASTHMA ( Reported) Amitriptyline HCl 50 MG TABLET 1 TAB PO QHS MENTAL HEALTH (Reported) Amlodipine Besylate (Norvasc) 5 MG TABLET 1 TAB PO DAILY BP (Reported) Aspirin (Ecotrin*) 81 MG TABLET.DR 1 TAB PO DAILY HEART/BLOOD (Reported) Atorvastatin Calcium 80 MG TABLET 1 TAB PO DAILY CHOLESTEROL (Reported) Fluticasone/Salmeterol (Advair 250-50 Diskus) 1 EACH BLST.W.DEV 1 PUFF INH DAILY ASTHMA (Reported) Hydrochlorothiazide 25 MG TABLET 1 TAB PO DAILY HTN (Reported) Ketorolac Tromethamine 10 MG TABLET 1 TAB PO TID PRN pain Lisinopril 2.5 MG TABLET 1 TAB PO DAILY BP (Reported) Metformin HCl (Glucophage) 1,000 MG TABLET 1 TAB PO DAILY DIABETES (Reported) Metoprolol Tartrate 50 MG TABLET 1 TAB PO DAILY BLOOD PRESSURE (Reported) Oxycodone HCl (Oxycontin) 20 MG TAB.ER.12H 1 TAB PO BID PAIN (Reported) Oxycodone HCl 20 MG TABLET 1 TAB PO Q4H PAIN (Reported) Sitagliptin Phosphate (Januvia) 100 MG TABLET 1 TAB PO DAILY DIABETES ( Reported) Triage Note: PT TO ED FOR L FLANK PAIN RADIATING INTO GROIN SINCE THIS AM. HX OF KIDNEY STONES "AND IT HURTS LIKE THAT". TOOK A 20MG OXYCODONE AT HOME WITH NO RELIEF. Triage Nurses Notes Reviewed? yes HPI: 60-year-old male with sudden onset left flank plain and radiates to left mid abdominal region associated with nausea vomiting sudden onset severe started this morning. History of kidney stones, feels similar. No urinary symptoms. He took oxycodone and OxyContin that he takes for his chronic knee pain due to arthritis which did not help his symptoms. He has no history of diverticulitis, no previous abdominal surgeries. (RICHI MADRID) Past History Travel History Traveled to [place] past 21 day No Medical History Any Pertinent Medical History? see below for history Neurological: NONE EENT: NONE Cardiovascular: hypertension, hyperlipidemia, CABG Respiratory: NONE Gastrointestinal: SPASTIC COLON Hepatic: NONE Renal: nephrolithiasis Musculoskeletal: CHRONIC KNEE PAIN Psychiatric: NONE Endocrine: diabetes Blood Disorders: NONE Cancer(s): NONE INDEPENDENT PRODUCER/Reproductive: NONE History of MRSA: No History of VRE: No History of CDIFF: No Surgical History Surgical History: CABG Psychosocial History Who do you live with Family Services at Home None What is your primary language Bulgarian Tobacco Use: Current Daily Use Daily Tobacco Use Amount/Type: => 5 Cigarettes daily ETOH Use: denies use Illicit Drug Use: denies illicit drug use Family History Family History, If Any: FATHER (pancreatic ca). MOTHER (heart attack when she was younger than 65). Hx Contributory? No (RICHI MADRID) Review of Systems Review of Systems Constitutional: Reports: see HPI. EENTM: Reports: no symptoms. Respiratory: Reports: no symptoms. Cardiovascular: Reports: no symptoms. GI: Reports: see HPI. Genitourinary: Reports: no symptoms. Musculoskeletal: Reports: no symptoms. Skin: Reports: no symptoms. Neurological/Psychological: Reports: no symptoms. Hematologic/Endocrine: Reports: no symptoms. Immunologic/Allergic: Reports: no symptoms. All Other Systems: Reviewed and Negative (RICHI MADRID) Physical Exam Physical Exam Respiratory: normal breath sounds, chest non-tender, no respiratory distress Cardiovascular: regular rate/rhythm Gastrointestinal: normal bowel sounds, soft, MILD TENDERNESS LEFT MID ABDOMINAL REGION, POSITIVE LEFT-SIDED cva TENDERNESS Comments: Well-developed well-nourished Appears to be mild distress, holding left flank area HEENT: Atraumatic, extraocular motion intact Neck: Supple, no lymphadenopathy Back: Nontender Respiratory: No respiratory distress Extremities: No edema, full range of motion Neuro: Alert and oriented x3 Psych: Mood affect normal, normal memory normal judgment. Skin: Warm and dry, no rash on exposed skin Core Measures ACS in differential dx? No Severe Sepsis Present: No Septic Shock Present: No (RICHI MADRID) Progress Differential Diagnosis: AAA, AMI, appendicitis, biliary colic, bowel obstruction , colon cancer, cholecystitis, diverticulitis, epididymitis, esophageal varices, gastritis, hepatitis, hernia, hemorrhoids, ischemic bowel, inflamm bowel dis, Sun-[place] tear, orchitis, pancreatitis, prostatitis, peptic ulcer, PUD/GERD, perforated viscous, pyelonephritis, SBO, STD, testicular torsion, ureterolithiasis, urinary retention, urethritis, UTI/pyelo Plan of Care: Orders Procedure Date/time Status URINALYSIS 09/26 922 Complete COMPREHENSIVE METABOLIC PANEL 09/26 922 Complete CBC WITHOUT DIFFERENTIAL 09/26 922 Complete Laboratory Tests 09/26/16 1034: Urinalysis LIGHT H, Urine Color YEL, Urine Clarity HAZY H, Urine pH 6.0, Ur Specific Sunol >= 1.030, Urine Protein TRACE H, Urine Ketones TRACE H, Urine Nitrite NEG, Urine Bilirubin NEG, Urine Urobilinogen 0.2, Ur Leukocyte Esterase TRACE H, Ur Microscopic SEDIMENT EXAMINED, Urine RBC 3-5, Urine WBC RARE, Ur Epithelial Cells FEW, Urine Crystals 1+ CA OX H, Urine Bacteria FEW H, Urine Mucus MANY H, Urine Hemoglobin TRACE-INTACT H, Urine Glucose 250 H 09/26/16 0924: Anion Gap 7, Estimated GFR > 60, BUN/Creatinine Ratio 20.0, Glucose 221 H, Calcium 9.9, Total Bilirubin 1.0, AST 18, ALT 41, Alkaline Phosphatase 71, Total Protein 7.1, Albumin 4.3, Globulin 2.8, Albumin/Globulin Ratio 1.5, CBC w Diff MAN DIFF ORDERED, RBC 5.47, MCV 87.5, MCH 29.1, RDW 13.2, MPV 7.9, Gran % 85.1 H, Lymphocytes % 9.8 L, Monocytes % 4.4, Eosinophils % 0.3, Basophils % 0.4, Absolute Granulocytes 10.7 H, Segmented Neutrophils 72, Band Neutrophils 11 H, Absolute Lymphocytes 1.2, Lymphocytes 11 L, Monocytes 5, Absolute Monocytes 0.6 , Eosinophils 1, Absolute Eosinophils 0, Absolute Basophils 0, Normocytic RBCs VERIFIED, Normochromic RBCs VERIFIED, PUBS MCHC 33.2 Initial ED EKG: none Comments: Patient treated with IV Dilaudid, IV fluids and IV antiemetics. His pain improved after reevaluation however still with moderate pain and given a second milligram of Dilaudid IV as well as 30 mg of Toradol IV. His blood tests show that his sugar is slightly elevated, his white count is mildly elevated as well as an elevated bands to 11%. His CT scan is read by the radiologist as negative however I reviewed myself and agree see some calcifications in the left renal pelvis area that was present on his last few CT scans but it is more pronounced on the CT scan and his urine shows calcium oxalate and trace hematuria, given his history of kidney stones, the appearance of the CT scan and initial presentation of the symptoms and physical exam, I believe patient is suffering from kidney stones, likely has passed a kidney stone or has some blockage from this calcification in his left renal pelvis. He was reevaluated again and his pain has resolved and he is feeling well. I considered intra-abdominal infection. Her CT scan does not show anything regarding that and I evaluated his lower lung camacho bilaterally on his CT scan as well which did not show any pneumonia. He remains pain-free, symptom-free and I have discussed the lab findings and results of CT scan with patient. He is stable to go home, he has pain medication at home, he is to return with worsening symptoms and follow-up with urology this week. (RICHI MADRID) Departure Departure Disposition: HOME OR SELF CARE Condition: Stable Clinical Impression Primary Impression: Calcium nephrolithiasis Referrals: CHACHA CLEARY,MARGARETH Castanon (PCP/Family) VARGAS MELENDEZ MD Additional Instructions: Continue your pain medication from a pain management doctor. Please call your pain management doctor and notify them that you have a kidney stone so they are aware that you may be taking more than prescribed Start Toradol tablets for your kidney stone pain and please call Dr. Melendez, your urologist, tomorrow. Return to the ER with worsening pain, nausea, vomiting or fever Departure Forms: Customer Survey General Discharge Information Prescriptions: Current Visit Scripts Ketorolac Tromethamine 1 TAB PO TID PRN pain #15 TAB (RICHI MADRID) PA/BUS ATTENDANT Co-Sign Statement Statement: ED Attending supervision documentation- [X] I saw and evaluated the patient. I have also reviewed all the pertinent lab results and diagnostic results. I agree with the findings and the plan of care as documented in the PA's/BUS ATTENDANT's documentation. [X] I have reviewed the ED Record and agree with the PA's/BUS ATTENDANT's documentation. [] Additions or exceptions (if any) to the PAs/BUS ATTENDANT's note and plan are summarized below: [] (WARREN CLEARY,NEREIDA Dixon)
[2016-09-26 09:45] LABS: GRANULOCYTE % 85.1 % (42.2-75.2)
--- NOTE | 2016-09-26 10:31 | CT SCAN REPORT ---
EXAMINATION: CT ABDOMEN AND PELVIS WITHOUT CONTRAST CLINICAL INFORMATION: Left-sided flank pain. COMPARISON: CT abdomen and pelvis noncontrast 04/08/2016, CT chest 11/08/2013. TECHNIQUE: Multidetector volumetric imaging was performed from the superior aspect of the liver through the pubic symphysis. Sagittal and coronal reformatted images were obtained on the technologist's workstation. No oral or intravenous contrast. DLP: 509 mGy-cm FINDINGS: LUNG BASES: Stable 4 mm nodule left lateral base. No change since 2013 suggests a benign nodule. LIVER, GALLBLADDER, AND BILIARY TREE: The liver is normal in size, shape, and attenuation. No focal hepatic lesion or biliary ductal dilatation is present. The gallbladder is unremarkable with no evidence of radiopaque gallstones, gallbladder wall thickening, or obvious pericholecystic inflammatory changes. PANCREAS: Unremarkable. SPLEEN: Unremarkable. ADRENAL GLANDS: Unremarkable. KIDNEYS AND URETERS: The kidneys are normal in size, shape, and attenuation. No hydronephrosis, hydroureter, or calculi seen. No perinephric stranding. BLADDER: Unremarkable. GASTROINTESTINAL TRACT: The small and large bowel are unremarkable. The appendix is unremarkable. No ascites or fluid collection. ABDOMINAL WALL: No significant hernia is appreciated. LYMPH NODES: No lymphadenopathy. VASCULAR: Atherosclerotic calcifications including the aorta or common iliac arteries and left renal artery. PELVIC VISCERA: Unremarkable. OSSEOUS STRUCTURES: Degenerative changes spine. IMPRESSION: 1. No hydronephrosis, perinephric stranding, or urinary tract calculi. 2. No inflammatory changes in the bowel or mesentery. 3. Stable 4 mm nodule left lateral base, similar to CT chest 11/08/2013 suggesting a benign nodule.
[2016-09-26] MEDS ORDERED: KETOROLAC TROME10 M1 PO (11:31)
[2016-09-26 11:50] VITALS: BP 126/84
== END 2016-09-26 11:50 ==
LOC: ERH 09:07
PROVIDERS: Physician Assistant Surgical
DX: N20.0 Calculus of kidney (principal)
CPT/HCPCS: 74176; 81001; 96374; 96375; 96376; J1885; J2405